=== PATIENT | female | born 1970 | race American Indian/Alaskan Native ===

== ENCOUNTER 2018-12-18 11:42 | Emergency (ER) | payer SELFPAY ==
[2018-12-18 11:47] VITALS: BP 165/107
--- NOTE | 2018-12-18 11:50 | Emergency Department Report ---
Chief Complaint: Upper Respiratory Infection Stated Complaint: LINDA Time Seen by Provider: 12/18/18 11:46 - HPI History of Present Illness: This is a 48 y.o. F that presents to the ER with URI symptoms. Reports congestion, cough, wheezing. Denies SOB, coryza, N/V/D, or myalgia. PMH: Asthma - Exam Vital Signs: Vital Signs 12/18/18 11:46 Temperature 98.7 F Pulse Rate 82 Respiratory 18 Rate Blood Pressure 165/107 O2 Sat by Pulse 99 Oximetry MSE screening note: Focused history and physical exam performed. Due to findings the following was ordered: CXR ACC for further evaluation ED Disposition for MSE Condition: Stable
[2018-12-18] MEDS ORDERED: SOLU-Medrol IM ONE (12:02)
[2018-12-18] MEDS ORDERED: PROVENTIL IH ONE (12:02)
--- NOTE | 2018-12-18 12:02 | Emergency Department Report ---
Minor Respiratory - HPI Chief Complaint: Upper Respiratory Infection Stated Complaint: LINDA Time Seen by Provider: 12/18/18 11:46 Duration: 2 Days Pain Location: Chest Severity: mild Minor Respiratory: Yes Able to Tolerate Fluids, Yes Cough, Yes Shortness of Breath, No Rhinorrhea, No Sore Throat, No Ear Pain, No Sick Contacts, No Hemoptysis, No Chest Pain, No Fever Other History: Patient is a pleasant 48-year-old comes in with wheezing today. She has a history of asthma. She reports yellow sputum. No fever. Patient denies any other medical history and is on no current medications daily. She has no primary care doctor. ED Review of Systems ROS: Stated complaint: LINDA Other details as noted in HPI Comment: All other systems reviewed and negative ED Past Medical Hx - Past Medical History Previous Medical History?: Yes Hx Asthma: Yes - Surgical History Past Surgical History?: No - Family History Family history: no significant - Social History Smoking Status: Current Every Day Smoker Substance Use Type: None - Medications Home Medications: Home Medications Medication Instructions Recorded Confirmed Last Taken Type Albuterol Sulfate [Proair 90 mcg IH QID PRN #1 aer.pow.ba 12/18/18 Unknown Rx Respiclick] Azithromycin [Zithromax Z-DON] 250 mg PO DAILY #6 tablet 12/18/18 Unknown Rx Budesonide/Formoterol Fumarate 10.2 gm IH BID #1 hfa.aer.ad 12/18/18 Unknown Rx [Symbicort 80-4.5 Mcg Inhaler] Cetirizine HCl [ZyrTEC] 10 mg PO DAILY #30 capsule 12/18/18 Unknown Rx Fluticasone [Flonase] 1 spray NS QDAY #1 bottle 12/18/18 Unknown Rx predniSONE [Deltasone] 20 mg PO DAILY #5 tablet 12/18/18 Unknown Rx Minor Respiratory Exam - Exam General: Vital signs noted. No distress. Alert and acting appropriately. HEENT: Yes Pharyngeal Erythema, Yes Moist Mucous Membranes, No Pharyngeal Exudates, No Rhinorrhea, No Conjuctival Injection, No Frontal Tenderness, No Max illary Tenderness Ear: Neither TM Bulge, Neither TM Erythema, Neither EAC Pain, Neither EAC Discharge Neck: Yes Supple, No Adenopathy Lungs: Yes Good Air Exchange, Yes Wheezes, Yes Cough, No Ronchi, No Stridor, No Labored Respirations, No Retractions, No Use of Accessory Muscles, No Other Abnormal Lung Sounds Heart: Yes Regular, No Murmur Abdomen: Yes Normal Bowel Sounds, No Tenderness, No Peritoneal Signs Skin: No Rash, No Edema Neurologic: Alert and oriented, no deficits. Musculoskeletal: Unremarkable. ED Course Vital Signs 12/18/18 11:46 Temperature 98.7 F Pulse Rate 82 Respiratory 18 Rate Blood Pressure 165/107 O2 Sat by Pulse 99 Oximetry - Reevaluation(s) Reevaluation #1: 12/18/18 13:10 wheezing dec with rt treatment pt instructed to monitor her blood pressure ED Medical Decision Making - Radiology Data Radiology results: report reviewed, image reviewed - Medical Decision Making medicated in ER duoneb no fever no cp cough pos sputum wheezing on admit improved with treatment no consolidation on xray dc home with dc plan of care Vital Signs 12/18/18 11:46 Temperature 98.7 F Pulse Rate 82 Respiratory 18 Rate Blood Pressure 165/107 O2 Sat by Pulse 99 Oximetry Critical care attestation.: If time is entered above; I have spent that time in minutes in the direct care of this critically ill patient, excluding procedure time. ED Disposition Clinical Impression: Asthma, URTI (acute upper respiratory infection), Elevated blood pressure reading Disposition: DC-01 TO HOME OR SELFCARE Is pt being admited?: No Does the pt Need Aspirin: No Condition: Stable Instructions: Asthma (ED) Additional Instructions: DIET TOLERATED MEDS ORDERED TODAY IN ER FOLLOW INSTRUCTIONS ON THE BOTTLE FOLLOW UP PCP WITHIN 48 HOURS TO ENSURE YOU ARE GETTING BETTER ACTIVITY TOLERATED MOTRIN OR TYLENOL FOR PAIN OR FEVER RETURN TO THE ER FOR WORSENING SYMPTOMS NOT RELIEVED BY YOUR MEDICATIONS. monitor your blood pressure Referrals: MEGHAN DEAN MD [Primary Care Provider] - 3-5 Days Time of Disposition: 12:59
--- NOTE | 2018-12-18 13:33 | XRay Report ---
XRAY CHEST TWO VIEWS: 12/18/18 11:42:00 CLINICAL: Cough. COMPARISON: None FINDINGS: Normal heart and pulmonary vasculature. The lungs are normally expanded and clear.Mild degenerative changes in the spine. IMPRESSION: No acute cardiopulmonary process.
== END 2018-12-18 14:18 | disposition home or self-care (01) ==
LOC: ED 11:42
DX: J45.909 Unspecified asthma, uncomplicated (principal); J06.9 Acute upper respiratory infection, unspecified; F17.200 Nicotine dependence, unspecified, uncomplicated
CPT/HCPCS: 71046; 96372; 99283; J2930; 94640

== ENCOUNTER 2019-05-11 23:02 | Emergency (ER) | payer SELFPAY ==
[2019-05-12 01:32] LABS: Basophils # (Auto) 0.1 K/mm3 (0.0-0.1); Basophils % (Auto) 1.4 % (0.0-1.8); Eosinophils # (Auto) 0.1 K/mm3 (0.0-0.4); Eosinophils % (Auto) 1.2 % (0.0-4.3); Hemoglobin 13.5 gm/dl (10.1-14.3); Lymphocytes # (Auto) 2.8 K/mm3 (1.2-5.4); Lymphocytes % (Auto) 34.6 % (13.4-35.0); Mean Corpuscular HGB Conc 35 % (30-34); Mean Corpuscular Volume 87 fl (79-97); Monocytes # (Auto) 0.6 K/mm3 (0.0-0.8); Monocytes % (Auto) 7.2 % (0.0-7.3); Platelet Count 310 K/mm3 (140-440); Red Cell Distribution Width 13.9 % (13.2-15.2)
[2019-05-12 01:34] LABS: INR 0.97 (0.87-1.13)
[2019-05-12 01:35] LABS: Partial Thromboplastin Time 28.6 Sec. (24.2-36.6)
[2019-05-12 01:39] LABS: BUN/Creatinine Ratio 14; Blood Urea Nitrogen 11 mg/dL (7-17); Hemolysis Index 3
--- NOTE | 2019-05-12 01:43 | Emergency Department Report ---
ED Extremity Problem HPI - General Chief complaint: Extremity Injury, Lower Stated complaint: R LEG PAIN Time Seen by Provider: 05/11/19 23:54 Source: patient Mode of arrival: Ambulatory Limitations: No Limitations - History of Present Illness Initial comments: 48-year-old female presents to ED with right leg pain 4 days. Patient states that she has a history of sciatica, however this pain is different. Reports pain to the thigh and also lower leg. Reported minimal swelling. Denies any fever or redness. She also denies chest pain or shortness of breath. MD Complaint: extremity pain -: days(s) (4) Location: right, lower extremity -: No fever, No associated dyspnea, No associated chest pain Quality: aching Consistency: constant Improves with: immobilization Worsens with: weight bearing, palpation Associated Symptoms: denies: chest pain, shortness of breath, fever - Related Data Previous Rx's Medication Instructions Recorded Last Taken Type Albuterol Sulfate [Proair 90 mcg IH QID PRN #1 aer.pow.ba 12/18/18 Unknown Rx Respiclick] Azithromycin [Zithromax Z-DON] 250 mg PO DAILY #6 tablet 12/18/18 Unknown Rx Budesonide/Formoterol Fumarate 10.2 gm IH BID #1 hfa.aer.ad 12/18/18 Unknown Rx [Symbicort 80-4.5 Mcg Inhaler] Cetirizine HCl [ZyrTEC] 10 mg PO DAILY #30 capsule 12/18/18 Unknown Rx Fluticasone [Flonase] 1 spray NS QDAY #1 bottle 12/18/18 Unknown Rx predniSONE [Deltasone] 20 mg PO DAILY #5 tablet 12/18/18 Unknown Rx methOCARBAMOL [Robaxin TAB] 500 mg PO Q8HR PRN #20 tablet 05/12/19 Unknown Rx traMADol [Ultram] 50 mg PO Q6HR PRN #7 tablet 05/12/19 Unknown Rx Allergies Allergy/AdvReac Type Severity Reaction Status Date / Time codeine AdvReac Nausea Verified 12/18/18 11:44 latex AdvReac Itching Verified 12/18/18 11:44 ED Review of Systems ROS: Stated complaint: R LEG PAIN Other details as noted in HPI Comment: All other systems reviewed and negative Constitutional: denies: chills, fever Respiratory: denies: shortness of breath Cardiovascular: denies: chest pain Musculoskeletal: denies: arthralgia Neurological: denies: weakness, numbness ED Past Medical Hx - Past Medical History Previous Medical History?: Yes Hx Asthma: Yes - Surgical History Past Surgical History?: No - Social History Smoking Status: Current Every Day Smoker Substance Use Type: None - Medications Home Medications: Home Medications Medication Instructions Recorded Confirmed Last Taken Type Albuterol Sulfate [Proair 90 mcg IH QID PRN #1 aer.pow.ba 12/18/18 Unknown Rx Respiclick] Azithromycin [Zithromax Z-DON] 250 mg PO DAILY #6 tablet 12/18/18 Unknown Rx Budesonide/Formoterol Fumarate 10.2 gm IH BID #1 hfa.aer.ad 12/18/18 Unknown Rx [Symbicort 80-4.5 Mcg Inhaler] Cetirizine HCl [ZyrTEC] 10 mg PO DAILY #30 capsule 12/18/18 Unknown Rx Fluticasone [Flonase] 1 spray NS QDAY #1 bottle 12/18/18 Unknown Rx predniSONE [Deltasone] 20 mg PO DAILY #5 tablet 12/18/18 Unknown Rx methOCARBAMOL [Robaxin TAB] 500 mg PO Q8HR PRN #20 tablet 05/12/19 Unknown Rx traMADol [Ultram] 50 mg PO Q6HR PRN #7 tablet 05/12/19 Unknown Rx ED Physical Exam - General Limitations: No Limitations General appearance: alert, in no apparent distress - Head Head exam: Present: atraumatic, normocephalic - Eye Eye exam: Present: normal appearance, PERRL, EOMI - ENT ENT exam: Present: mucous membranes moist - Neck Neck exam: Present: normal inspection - Respiratory Respiratory exam: Present: normal lung sounds bilaterally. Absent: respiratory distress - Cardiovascular Cardiovascular Exam: Present: regular rate, normal rhythm - GI/Abdominal GI/Abdominal exam: Absent: distended - Extremities Exam Extremities exam: Present: normal inspection, calf tenderness, other (tenderness to right anterior and posterior thigh and lower leg, no swelling appreciated; no erythma present) - Neurological Exam Neurological exam: Present: alert, oriented X3. Absent: motor sensory deficit - Psychiatric Psychiatric exam: Present: normal affect, normal mood - Skin Skin exam: Present: warm, dry, intact, normal color ED Medical Decision Making - Lab Data Result diagrams: 05/12/19 01:03 05/12/19 01:03 - Medical Decision Making Labs unremarkable except for elevated d-dimer. Patient given dose of Lovenox here to ED. She has been instructed to return for outpatient ultrasound to rule out DVT. Return precautions given. - Differential Diagnosis sciatica, DVT, myalgia Critical care attestation.: If time is entered above; I have spent that time in minutes in the direct care of this critically ill patient, excluding procedure time. ED Disposition Clinical Impression: Pain of right lower extremity Disposition: TO HOME OR SELFCARE Is pt being admited?: No Condition: Stable Instructions: Deep Venous Thrombosis (ED), Arthralgia (ED) Prescriptions: methOCARBAMOL [Robaxin TAB] 500 mg PO Q8HR PRN #20 tablet PRN Reason: Muscle Spasm traMADol [Ultram] 50 mg PO Q6HR PRN #7 tablet PRN Reason: Pain Referrals: PRIMARY CARE, [Primary Care Provider] - 3-5 Days [facility] [Provider Group] - 3-5 Days Time of Disposition: 01:53
[2019-05-12] MEDS ORDERED: ENOXAPARIN 100 MG/1 ML INJ SUB-Q ONE (01:47)
[2019-05-12] MEDS ORDERED: ENOXAPARIN 80 MG/0.8 ML INJ SUB-Q ONE (03:00)
[2019-05-12] MEDS ORDERED: ENOXAPARIN 30 MG/0.3 ML INJ SUB-Q ONE (03:00)
[2019-05-12 04:19] VITALS: BP 151/100
== END 2019-05-12 04:00 | disposition home or self-care (01) ==
LOC: ED 23:02
DX: M79.604 Pain in right leg (principal); Z88.6 Allergy status to analgesic agent; Z91.040 Latex allergy status
CPT/HCPCS: 36415; 80048; 85025; 85379; 85610; 85730; 96372; 99283; J1650

== ENCOUNTER 2019-05-13 13:31 | Emergency (ER) | payer SELFPAY ==
--- NOTE | 2019-05-13 14:09 | Emergency Department Report ---
Blank Doc - Documentation Documentation: 48-year-old female that presents with right leg pain. Stated was not able to get ultrasound that was prescribed recently. Stated symptoms is getting worse. This initial assessment/diagnostic orders/clinical plan/treatment(s) is/are subject to change based on patient's health status, clinical progression and re- assessment by fellow clinical providers in the ED. Further treatment and workup at subsequent clinical providers discretion. Patient/guardians urged not to elope from the ED as their condition may be serious if not clinically assessed and managed. Initial orders include: 1- Patient sent to ACC for further evaluation and treatment 2- US doppler
--- NOTE | 2019-05-13 17:48 | Emergency Department Report ---
ED General Adult HPI - General Chief complaint: Extremity Injury, Lower Stated complaint: MEDICAL CLEARANCE Time Seen by Provider: 05/13/19 14:07 Source: patient Mode of arrival: Ambulatory Limitations: No Limitations - History of Present Illness Initial comments: This is a 48-year-old female who returns to the ED stating that she was told to get an ultrasound of her right lower leg. Patient has been expressing his leg pain for the past 5 days. Patient states she received Lovenox treatment at her last visit yesterday. Patient presents here for ultrasound of her right leg. She states she is having minimal pain to the leg. 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 He denies shortness of breath, chest pain or any other symptoms - Related Data Previous Rx's Medication Instructions Recorded Last Taken Type Albuterol Sulfate [Proair 90 mcg IH QID PRN #1 aer.pow.ba 12/18/18 Unknown Rx Respiclick] Azithromycin [Zithromax Z-DON] 250 mg PO DAILY #6 tablet 12/18/18 Unknown Rx Budesonide/Formoterol Fumarate 10.2 gm IH BID #1 hfa.aer.ad 12/18/18 Unknown Rx [Symbicort 80-4.5 Mcg Inhaler] Cetirizine HCl [ZyrTEC] 10 mg PO DAILY #30 capsule 12/18/18 Unknown Rx Fluticasone [Flonase] 1 spray NS QDAY #1 bottle 12/18/18 Unknown Rx predniSONE [Deltasone] 20 mg PO DAILY #5 tablet 12/18/18 Unknown Rx methOCARBAMOL [Robaxin TAB] 500 mg PO Q8HR PRN #20 tablet 05/12/19 Unknown Rx traMADol [Ultram] 50 mg PO Q6HR PRN #7 tablet 05/12/19 Unknown Rx Ibuprofen [Motrin] 800 mg PO Q8HR #30 tablet 05/13/19 Unknown Rx Allergies Allergy/AdvReac Type Severity Reaction Status Date / Time codeine AdvReac Nausea Verified 12/18/18 11:44 latex AdvReac Itching Verified 12/18/18 11:44 ED Review of Systems ROS: Stated complaint: MEDICAL CLEARANCE Other details as noted in HPI Comment: All other systems reviewed and negative ED Past Medical Hx - Past Medical History Previous Medical History?: Yes Hx Asthma: Yes - Surgical History Past Surgical History?: No - Social History Smoking Status: Never Smoker Substance Use Type: None - Medications Home Medications: Home Medications Medication Instructions Recorded Confirmed Last Taken Type Albuterol Sulfate [Proair 90 mcg IH QID PRN #1 aer.pow.ba 12/18/18 Unknown Rx Respiclick] Azithromycin [Zithromax Z-DON] 250 mg PO DAILY #6 tablet 12/18/18 Unknown Rx Budesonide/Formoterol Fumarate 10.2 gm IH BID #1 hfa.aer.ad 12/18/18 Unknown Rx [Symbicort 80-4.5 Mcg Inhaler] Cetirizine HCl [ZyrTEC] 10 mg PO DAILY #30 capsule 12/18/18 Unknown Rx Fluticasone [Flonase] 1 spray NS QDAY #1 bottle 12/18/18 Unknown Rx predniSONE [Deltasone] 20 mg PO DAILY #5 tablet 12/18/18 Unknown Rx methOCARBAMOL [Robaxin TAB] 500 mg PO Q8HR PRN #20 tablet 05/12/19 Unknown Rx traMADol [Ultram] 50 mg PO Q6HR PRN #7 tablet 05/12/19 Unknown Rx Ibuprofen [Motrin] 800 mg PO Q8HR #30 tablet 05/13/19 Unknown Rx ED Physical Exam - General Limitations: No Limitations General appearance: alert, in no apparent distress - Head Head exam: Present: atraumatic, normocephalic - Eye Eye exam: Present: normal appearance - ENT ENT exam: Present: mucous membranes moist - Neck Neck exam: Present: normal inspection - Respiratory Respiratory exam: Present: normal lung sounds bilaterally. Absent: respiratory distress - Cardiovascular Cardiovascular Exam: Present: regular rate, normal rhythm. Absent: systolic murmur, diastolic murmur, rubs, gallop - GI/Abdominal GI/Abdominal exam: Present: soft, normal bowel sounds - Extremities Exam Extremities exam: Present: normal inspection, full ROM, other (Homans test negative). Absent: tenderness, joint swelling, calf tenderness - Back Exam Back exam: Present: normal inspection, full ROM. Absent: tenderness - Neurological Exam Neurological exam: Present: alert, oriented X3 - Psychiatric Psychiatric exam: Present: normal affect, normal mood - Skin Skin exam: Present: warm, dry, intact, normal color. Absent: rash ED Medical Decision Making - Medical Decision Making 48-year-old female presents to the ED for right leg pain secondary to sciatica. D-dimer was not elevated in the ED today. Right lower leg Doppler ultrasound completed, no signs of DVT. I discussed results of findings with the patient. I discussed the patient to follow up with her primary care physician outpatient. Referrals given to patient. Vital signs are normal she is in no acute distress. Critical care attestation.: If time is entered above; I have spent that time in minutes in the direct care of this critically ill patient, excluding procedure time. ED Disposition Clinical Impression: Pain of right lower extremity, Sciatica Disposition: TO HOME OR SELFCARE Is pt being admited?: No Does the pt Need Aspirin: No Condition: Stable Instructions: Lumbar Radiculopathy (ED), Deep Venous Thrombosis (ED) Additional Instructions: Make sure to follow up with the primary care physician as discussed. Take all your medications as you've been prescribed. If you have any worsening symptoms or develop new symptoms please return to ED immediately. Prescriptions: Ibuprofen [Motrin] 800 mg PO Q8HR #30 tablet Referrals: [facility] [Outside] - 3-5 Days [facility] [Outside] - 3-5 Days Forms: Work/School Release Form(ED) Time of Disposition: 17:59
[2019-05-13 18:34] VITALS: BP 154/104
--- NOTE | 2019-05-14 07:23 | Vascular Lab Report ---
DUPLEX DOPPLER LOWER EXTREMITY VEINS, RIGHT INDICATION / CLINICAL INFORMATION: leg pain. TECHNIQUE: Duplex doppler imaging was performed through the veins of the right lower extremity using venous comp ression and other maneuvers. COMPARISON: None available. FINDINGS: COMMON FEMORAL VEIN: Negative. FEMORAL VEIN: Negative. POPLITEAL VEIN: Negative. CALF VEINS: Negative. ADDITIONAL FINDINGS: None. IMPRESSION: 1. No sonographic evidence for DVT in the right lower extremity. Signer Name: Mark Reddy MD Signed: 05/13/2019 5:48 PM Workstation Name: [id number]
== END 2019-05-13 19:34 | disposition home or self-care (01) ==
LOC: ED 13:31
DX: M79.661 Pain in right lower leg (principal); M54.31 Sciatica, right side; J45.909 Unspecified asthma, uncomplicated; Z79.899 Other long term (current) drug therapy; Z88.5 Allergy status to narcotic agent; Z91.040 Latex allergy status
CPT/HCPCS: 36415; 85379

== ENCOUNTER 2021-08-10 19:20 | Emergency (ER) | payer OTHER ==
[2021-08-10 23:22] VITALS: BP 136/77
[2021-08-11] MEDS ORDERED: ONDANSETRON 4 MG ODT TAB PO ONE (03:06)
[2021-08-11] MEDS ORDERED: BUTALB/ACETAMINOPHEN/CAFFEINE TAB PO ONE (03:06)
[2021-08-11] MEDS ORDERED: KETOROLAC 30 MG/1 ML INJ IM ONE (03:06)
[2021-08-11] MEDS ORDERED: AMOXICILLIN/K CLAV 875/125MG TAB PO ONE (03:06)
--- NOTE | 2021-08-11 03:48 | Emergency Department Report ---
ED Headache HPI - General Chief Complaint: Headache Stated Complaint: HEADACHE Source: patient Exam Limitations: no limitations - History of Present Illness Initial Comments: Patient is a 50-year-old -Turkish female with a history of asthma and morbid obesity who presents to the ED with complaint of acute onset persistent frontal sinus pressure, nasal and sinus congestion with pressure, frontal sinus headache with nausea for the last 1 week, worse in the last 2 days. Patient states that she has been taking jqxo-[id number] medication with no relief. Patient denies dizziness, syncope, chest pain, shortness of breath, fever, chills, cough, sore throat, neck pain, change in vision, or diarrhea. Timing/Duration: 1 week Quality: severe, pressure, sharp Head Injury Location: frontal Recent Head Trauma: no recent headache/trauma Associated Symptoms: denies symptoms, facial pain, nausea/vomiting, nasal congestion, nasal drainage. denies: confusion, fatigue, fever/chills, flushing, loss of consciousness, numbness in legs/feet, seizures, sinus infection, stiff neck, vision changes, weakness Allergies/Adverse Reactions: Allergies codeine Adverse Reaction (Verified 08/10/21 23:22) Nausea latex Adverse Reaction (Verified 08/10/21 23:22) Itching Home Medications: Ambulatory Orders Albuterol Sulfate [Proair Respiclick] 90 mcg IH QID PRN #1 aer.pow.ba 12/18/18 Azithromycin [Zithromax Z-DON] 250 mg PO DAILY #6 tablet 12/18/18 Budesonide/Formoterol Fumarate [Symbicort 80-4.5 Mcg Inhaler] 10.2 gm IH BID #1 hfa.aer.ad 12/18/18 Fluticasone [Flonase] 1 spray NS QDAY #1 bottle 12/18/18 predniSONE [Deltasone] 20 mg PO DAILY #5 tablet 12/18/18 methOCARBAMOL [Robaxin TAB] 500 mg PO Q8HR PRN #20 tablet 05/12/19 traMADoL [Ultram] 50 mg PO Q6HR PRN #7 tablet 05/12/19 Ibuprofen [Motrin] 800 mg PO Q8HR #30 tablet 05/13/19 Amoxicillin/Potassium Clav [Augmentin 875-125 Tablet] 1 each PO Q12H #20 tablet 08/11/21 Butalb/Acetamin/Caff 50-325-40 [Fioricet 50-325-40] 1 - 2 tab PO Q6HR PRN #15 tab 08/11/21 Cetirizine HCl [ZyrTEC 10mg cap] 10 mg PO DAILY #30 capsule 08/11/21 Ketorolac [Toradol] 10 mg PO Q8H PRN #20 tablet 08/11/21 Ondansetron [Zofran Odt] 4 mg PO Q8HR PRN #15 tab.rapdis 08/11/21 ED Review of Systems ROS: Stated complaint: HEADACHE Other details as noted in HPI Constitutional: denies: chills, fever Eyes: denies: eye pain, eye discharge, vision change ENT: congestion, other (Frontal sinus pressure and headache). denies: ear pain, throat pain Respiratory: denies: cough, shortness of breath, wheezing Cardiovascular: denies: chest pain, palpitations Endocrine: no symptoms reported Gastrointestinal: nausea. denies: abdominal pain, diarrhea Genitourinary: denies: urgency, dysuria, discharge Musculoskeletal: denies: back pain, joint swelling, arthralgia Skin: denies: rash, lesions Neurological: headache (Frontal headache). denies: weakness, paresthesias Psychiatric: denies: anxiety, depression Hematological/Lymphatic: denies: easy bleeding, easy bruising ED Past Medical Hx - Past Medical History Hx Asthma: Yes - Social History Smoking Status: Never Smoker Substance Use Type: None - Medications Home Medications: Home Medications Medication Instructions Recorded Confirmed Last Taken Type Albuterol Sulfate [Proair 90 mcg IH QID PRN #1 aer.pow.ba 12/18/18 Unknown Rx Respiclick] Azithromycin [Zithromax Z-DON] 250 mg PO DAILY #6 tablet 12/18/18 Unknown Rx Budesonide/Formoterol Fumarate 10.2 gm IH BID #1 hfa.aer.ad 12/18/18 Unknown Rx [Symbicort 80-4.5 Mcg Inhaler] Fluticasone [Flonase] 1 spray NS QDAY #1 bottle 12/18/18 Unknown Rx predniSONE [Deltasone] 20 mg PO DAILY #5 tablet 12/18/18 Unknown Rx methOCARBAMOL [Robaxin TAB] 500 mg PO Q8HR PRN #20 tablet 05/12/19 Unknown Rx traMADoL [Ultram] 50 mg PO Q6HR PRN #7 tablet 05/12/19 Unknown Rx Ibuprofen [Motrin] 800 mg PO Q8HR #30 tablet 05/13/19 Unknown Rx Amoxicillin/Potassium Clav 1 each PO Q12H #20 tablet 08/11/21 Unknown Rx [Augmentin 875-125 Tablet] Butalb/Acetamin/Caff 50-325-40 1 - 2 tab PO Q6HR PRN #15 tab 08/11/21 Unknown Rx [Fioricet 50-325-40] Cetirizine HCl [ZyrTEC 10mg cap] 10 mg PO DAILY #30 capsule 08/11/21 Unknown Rx Ketorolac [Toradol] 10 mg PO Q8H PRN #20 tablet 08/11/21 Unknown Rx Ondansetron [Zofran Odt] 4 mg PO Q8HR PRN #15 tab.rapdis 08/11/21 Unknown Rx ED Physical Exam - General Limitations: No Limitations General appearance: alert, in no apparent distress - Head Head exam: Present: atraumatic, normocephalic, normal inspection - Eye Eye exam: Present: normal appearance, PERRL, EOMI - ENT ENT exam: Present: normal orophraynx, mucous membranes moist, TM's normal bilaterally, normal external ear exam, other (Palpable frontal sinus tenderness; grossly congested nasal passages) - Neck Neck exam: Present: normal inspection, full ROM. Absent: tenderness - Respiratory Respiratory exam: Present: normal lung sounds bilaterally. Absent: respiratory distress, wheezes, rales, stridor, chest wall tenderness, accessory muscle use, decreased breath sounds - Cardiovascular Cardiovascular Exam: Present: regular rate, normal rhythm, normal heart sounds. Absent: systolic murmur, diastolic murmur, rubs, gallop - GI/Abdominal GI/Abdominal exam: Present: soft, normal bowel sounds. Absent: tenderness, guarding, rebound, hyperactive bowel sounds, hypoactive bowel sounds, mass - Extremities Exam Extremities exam: Present: normal inspection, full ROM, normal capillary refill - Back Exam Back exam: Present: normal inspection, full ROM. Absent: tenderness, CVA tenderness (R), CVA tenderness (L), muscle spasm, paraspinal tenderness - Neurological Exam Neurological exam: Present: alert, oriented X3, CN II-XII intact, normal gait, reflexes normal - Psychiatric Psychiatric exam: Present: normal affect, normal mood - Skin Skin exam: Present: warm, dry, intact, normal color. Absent: rash ED Course Vital Signs 08/10/21 23:19 Temperature 98.3 F Pulse Rate 79 Respiratory 18 Rate Blood Pressure 136/77 O2 Sat by Pulse 98 Oximetry ED Medical Decision Making - Medical Decision Making This is a 50-year-old -Turkish female with a history of asthma and morbid obesity who presents to the ED with complaint of acute onset persistent frontal sinus pressure, nasal and sinus congestion with pressure, frontal sinus headache with nausea for the last 1 week, worse in the last 2 days. Patient states that she has been taking [id number] medication with no relief. In the ED, patient is alert and oriented x3 and is not in distress. Patient however appears to be in significant pain. Patient was treated in the ED for headache with Toradol and Fioricet, as well as Zofran and observed. On reevaluation, patient's headache resolved in the ED. Patient felt better and will discharge home on pain medications and antibiotics for suspected acute frontal sinusitis. Patient was advised to follow-up with her primary care physician in 7 to 10 days for reevaluation or return to the ED immediately if symptoms get worse. - Differential Diagnosis Sinusitis; URI; migraine headaches; viral syndrome; sinus headache Critical care attestation.: If time is entered above; I have spent that time in minutes in the direct care of this critically ill patient, excluding procedure time. ED Disposition Clinical Impression: Sinus headache, Acute upper respiratory infection Acute frontal sinusitis, unspecified Qualifiers: Recurrence: non-recurrent Qualified Code(s): J01.10 - Acute frontal sinusitis, unspecified Disposition: 01 HOME / SELF CARE / HOMELESS Is pt being admited?: No Does the pt Need Aspirin: No Condition: Stable Instructions: Sinusitis, Adult, [id number], Upper Respiratory Infection, Adult, [id number] Additional Instructions: Take medication with food, drink plenty of fluids and follow-up with your primary care physician in 7 to 10 days for reevaluation. Return to the ED immediately if symptoms get worse Prescriptions: Amoxicillin/Potassium Clav [Augmentin 875-125 Tablet] 1 each PO Q12H #20 tablet Butalb/Acetamin/Caff 50-325-40 [Fioricet 50-325-40] 1 - 2 tab PO Q6HR PRN #15 tab PRN Reason: Headache Ketorolac [Toradol] 10 mg PO Q8H PRN #20 tablet PRN Reason: Pain Ondansetron [Zofran Odt] 4 mg PO Q8HR PRN #15 tab.rapdis PRN Reason: Nausea Cetirizine HCl [ZyrTEC 10mg cap] 10 mg PO DAILY #30 capsule Referrals: [facility] [Provider Group] - 3-5 Days Forms: Work/School Release Form(ED) Time of Disposition: 03:46 Print Language: MALTESE
== END 2021-08-11 05:40 | disposition home or self-care (01) ==
LOC: EDBD → ED 19:20
DX: J01.10 Acute frontal sinusitis, unspecified (principal); R51.9 Headache, unspecified; J45.909 Unspecified asthma, uncomplicated
CPT/HCPCS: 96372; 99282; J1885; J3490; Q0162

== ENCOUNTER 2021-12-31 13:28 | Emergency (ER) | payer OTHER ==
[2021-12-31 15:16] VITALS: BP 155/113
== END 2022-01-01 11:08 ==
LOC: ED 13:28
DX: H57.11 Ocular pain, right eye (principal); Z53.21 Procedure and treatment not carried out due to patient leaving prior to being seen by health care provider